=== PATIENT | male | born 1960 | race Caucasian/White ===

== ENCOUNTER 2016-12-30 15:33 | Emergency (ER) | payer MEDICARE ==
[~2016-12-30] VITALS: Ht 180.3 cm; Wt 110.0 kg
[2016-12-30 15:40] VITALS: BP 182/90; PULSE 92; RESP 15; TEMP 98.5; O2SAT 92
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
[2016-12-30] MEDS ORDERED: GLIP5TAB8 PO (16:04)
[2016-12-30] MEDS ORDERED: QUIN5TAB6 PO (16:04)
[2016-12-30] MEDS ORDERED: METF500T PO (16:04)
[2016-12-30] MEDS ORDERED: LISI-519 PO (16:04)
[2016-12-30] MEDS ORDERED: ATEN25TA PO (16:06)
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
[2016-12-30 16:51] LABS: AUTOMATED NEUTROPHIL # 6.1 TH/MM3 (1.8-7.7); BASOPHIL % 0.4 % (0.0-2.0); EOSINOPHIL # 0.2 TH/MM3 (0-0.4); EOSINOPHIL % 1.9 % (0.0-4.0); HEMATOCRIT 47.4 % (39.0-51.0); HEMO FLAGS DIFF FINAL; LYMPH % 14.8 % (9.0-44.0); LYMPHOCYTE # 1.2 TH/MM3 (1.0-4.8); MEAN CELL VOLUME 83.4 FL (80.0-100.0); MEAN CORPUSCULAR HEMOGLOBIN 27.1 PG (27.0-34.0); MEAN CORPUSCULAR HGB CONC 32.5 % (32.0-36.0); NEUT % 75.9 % (16.0-70.0); PLATELET COUNT 169 TH/MM3 (150-450); RED BLOOD COUNT 5.68 MIL/MM3 (4.50-5.90); RED CELL DISTRIBUTION WIDTH 15.4 % (11.6-17.2)
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
[2016-12-30 17:06] LABS: ANION GAP 8 MEQ/L (5-15); AST (GOT) 32 U/L (15-37); BICARBONATE 34.6 MEQ/L (21.0-32.0); BLOOD UREA NITROGEN 27 MG/DL (7-18); CHLORIDE 91 MEQ/L (98-107); GLOMERULAR FILTRATION RATE 56 ML/MIN (>89); POTASSIUM 4.2 MEQ/L (3.5-5.1); SODIUM (NA) 134 MEQ/L (136-145)
[2016-12-30 17:09] LABS: ALKALINE PHOSPHATASE 70 U/L (45-117); ALT (GPT) 47 U/L (12-78); TOTAL BILIRUBIN ADULT 0.4 MG/DL (0.2-1.0)
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
[2016-12-30] MEDS ORDERED: CEPH-460 PO (17:39)
[2016-12-30] MEDS ORDERED: HYDR-3533 PO (17:39)
[2016-12-30] MEDS ORDERED: LIDOCAINE HCL 2% 20 ML VIAL INFIL ONE (17:45)
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
== END 2016-12-30 18:42 | disposition home or self-care (01) ==
LOC: NEPC 15:33
DX: S09.90XA Unspecified injury of head, initial encounter (principal); S01.81XA Laceration without foreign body of other part of head, initial encounter; S01.511A Laceration without foreign body of lip, initial encounter; S02.81XA Fracture of other specified skull and facial bones, right side, initial encounter for closed fracture; E11.9 Type 2 diabetes mellitus without complications; I10 Essential (primary) hypertension; V29.3XXA Motorcycle rider (driver) (passenger) injured in unspecified nontraffic accident, initial encounter
CPT/HCPCS: 12013; 70450; 70486; 72125; 80053; 85025